=== PATIENT | female | born 1965 | race Caucasian/White ===

== ENCOUNTER 2022-11-30 21:43 | Emergency (ER) | payer BC ==
[~2022-11-30 21:43] MED LIST: Iopamidol 370 76% 100 ML VIAL ONE
[2022-11-30] MEDS ORDERED: Prochlorperazine 10 MG/2 ML VIAL ONE (22:41)
[2022-11-30] MEDS ORDERED: Ketorolac Tromethamine 30 MG/ML VIAL ONE (22:41)
[2022-11-30] MEDS ORDERED: Ondansetron PF 4 MG/2 ML Vial ONE (22:41)
[2022-11-30] MEDS ORDERED: HYDROmorphone 0.5 MG/0.5 ML SYRINGE ONE (22:42)
[2022-11-30 23:09] LABS: ALT (SGPT) 23 U/L (8-55); AST (SGOT) 26 U/L (5-34); Albumin 4.6 g/dL (3.5-5.0); Alkaline Phosphatase 73 U/L (40-110); Anion Gap 19 mmol/L (10-20); BUN (Urea Nitrogen) 35 mg/dL (9.8-20.1); Bilirubin, Total 0.4 mg/dL (0.2-1.2); Calc. Creatinine Clearance 0 mL/min (70-130); Carbon Dioxide 24 mmol/L (22-29); Chloride 101 mmol/L (98-107); Estimated GFR 84; Globulin 2.6 g/dL (2.4-3.5); Glucose 104 mg/dL (70-105); Lipase 37 U/L (8-78); Magnesium 3.1 mg/dL (1.6-2.6); Potassium 3.7 mmol/L (3.5-5.1); Protein, Total 7.2 g/dL (6.0-8.3); Sodium 140 mmol/L (136-145)
[2022-12-01 00:15] LABS: SARS-CoV-2 NAA Rapid Test Not Detected (NotDetected)
[2022-12-01 00:20] LABS: Hemoglobin 15.3 g/dL (12.0-16.0); Mean Corpuscular HGB CONC 36.1 g/dL (32.0-36.0); Mean Corpuscular Hemoglobin 33.2 pg (27.0-31.0); Mean Corpuscular Volume 91.9 fl (78.0-98.0); Platelet Count 344 10x3/uL (130-400); RBC Distribution Width 12.5 % (11.5-14.5); White Blood Cell (WBC) Count 6.1 10x3/uL (4.8-10.8)
[2022-12-01] MEDS ORDERED: Ciprofloxacin Lactate/D5W 400 mg/200 ml Premix ONE (00:56)
[2022-12-01] MEDS ORDERED: metroNIDAZOLE 500 MG/100 ML BAG ONE (00:56)
[2022-12-01 01:11] LABS: Band 8 % (5-11); Eosinophils 2 % (0-10); Lymphocytes 9 % (21-51); MDiff Complete? YES; Monocytes 1 % (0-10); Neutrophil 80 % (42-75)
[2022-12-01] MEDS ORDERED: HYDROmorphone 0.5 MG/0.5 ML SYRINGE ONE (02:06)
[2022-12-01] MEDS ORDERED: Prochlorperazine 10 MG/2 ML VIAL ONE (02:06)
== END 2022-12-01 02:20 | disposition short-term general hospital (02) ==
LOC: BURERS 21:43
DX: K52.9 Noninfective gastroenteritis and colitis, unspecified (principal); K62.89 Other specified diseases of anus and rectum; Z20.822 Contact with and (suspected) exposure to COVID-19
CPT/HCPCS: 36415; 71045; 74177; 80053; 83605; 83690; 83735; 85025; 87040; 87804; 96365; 96366; 96367; 96368; 96375; 96376; J0744; J0780; J1170; J1885; J2405; Q9967; U0002